=== PATIENT | female | born 2005 | race Caucasian/White ===

== ENCOUNTER 2024-05-14 19:26 | Emergency (ER) | payer SELFPAY ==
[~2024-05-14] VITALS: Ht 157.5 cm; Wt 95.6 kg
[2024-05-14 19:27] VITALS: BP 138/83; TEMP 98.7; O2SAT 98
[2024-05-14 21:38] LABS: BASO % 0.3 % (0.0-1.0); EOS # 0.4 10^3/uL (0.0-0.5); EOS % 3.5 % (0.0-3.0); HEMATOCRIT 36.9 % (36.0-47.0); HEMOGLOBIN 12.2 g/dl (12.0-15.5); LYMPH # 2.1 10^3/uL (1.5-5.0); LYMPH % 16.3 % (24.0-44.0); MEAN CORPUSCULAR HEMOGLOBIN 29.7 pg (27.0-33.0); MEAN CORPUSCULAR HGB CONC 33.1 g/dl (32.0-36.5); MEAN CORPUSCULAR VOLUME 89.8 fl (80.0-96.0); MONO # 0.6 10^3/uL (0.0-0.8); MONO % 4.4 % (2.0-8.0); NEUTROPHILS # 9.5 10^3/uL (1.5-8.5); NEUTROPHILS % 75.1 % (36.0-66.0); PLATELET COUNT, AUTOMATED 428 10^3/uL (150-450); RED BLOOD COUNT 4.11 10^6/uL (4.00-5.40); WHITE BLOOD COUNT 12.6 10^3/uL (4.0-10.0)
[2024-05-14 22:06] LABS: ALKALINE PHOSPHATASE 60 U/L (46-116); ALT/SGPT 37 U/L (7.0-40); AST/SGOT 20 U/L (<34); BILIRUBIN,TOTAL 0.3 MG/DL (0.3-1.2); BLOOD UREA NITROGEN 15 MG/DL (9-23); CALCIUM LEVEL 9.5 MG/DL (8.5-10.1); CARBON DIOXIDE LEVEL 26 MMOL/L (20-31); CHLORIDE LEVEL 107 MMOL/L (98-107); CREATININE FOR GFR 0.66 MG/DL (0.55-1.30); GLUCOSE, FASTING 101 MG/DL (60-100); POTASSIUM SERUM 4.3 MMOL/L (3.5-5.1); SODIUM LEVEL 140 MMOL/L (136-145); TOTAL PROTEIN 6.9 G/DL (5.7-8.2)
== END 2024-05-14 21:51 | disposition left against medical advice (07) ==
LOC: M ED 19:26
DX: Z53.21 Procedure and treatment not carried out due to patient leaving prior to being seen by health care provider (principal)

== ENCOUNTER 2024-07-21 07:54 | Day surgery (SDC) | payer OTHER ==
[~2024-07-21] VITALS: Ht 157.5 cm; Wt 95.7 kg
[~2024-07-21 07:54] MED LIST: VITA100093 PO
[2024-07-21] MEDS ORDERED: propofoL 500 MG/50 ML VIAL As Ordered ONE (08:06)
[2024-07-21] MEDS ORDERED: LIDOCAINE 1% SDV 5ML VIAL SC PRN (08:10)
[2024-07-21] MEDS ORDERED: LR 1,000 ML IV SCH (08:10)
[2024-07-21] MEDS ORDERED: fentaNYL 100 MCG/2 ML INJECTION As Ordered ONE (08:15)
[2024-07-21] MEDS ORDERED: MIDAZOLAM INJ 2MG/2ML VIAL As Ordered ONE (08:15)
[2024-07-21] MEDS ORDERED: LIDOCAINE 2% 100MG/5ML SDV (FOR ANES.) As Ordered ONE (08:17)
[2024-07-21] MEDS ORDERED: ONDANSETRON 4MG 2ML VIAL As Ordered ONE (08:18)
[2024-07-21] MEDS ORDERED: KETOROLAC 60MG 2ML VIAL As Ordered ONE (08:18)
[2024-07-21] MEDS: ceFAZolin SOD 2 GM in IV 1 EA IV ONE (09:25)
[2024-07-21] MEDS ORDERED: propofoL 200 MG/20 ML VIAL As Ordered ONE (09:35)
[2024-07-21 10:55] VITALS: BP 113/71; TEMP 97.2; O2SAT 100
== END 2024-07-21 11:00 | disposition home or self-care (01) ==
LOC: M SDC 07:54
PROVIDERS: ATTEND Surgery
DX: D17.1 Benign lipomatous neoplasm of skin and subcutaneous tissue of trunk (principal)
CPT/HCPCS: 21552; 81025; 88307; C9290; J0665; J0690; J1100; J1885; J2250; J2405; J3010

== ENCOUNTER 2024-07-24 17:38 | Emergency (ER) | payer OTHER ==
[~2024-07-24] VITALS: Ht 157.5 cm; Wt 96.2 kg
[2024-07-24 19:55] LABS: BASO % 0.4 % (0.0-1.0); EOS # 0.2 10^3/uL (0.0-0.5); HEMATOCRIT 38.2 % (36.0-47.0); HEMOGLOBIN 12.7 g/dl (12.0-15.5); LYMPH % 19.7 % (24.0-44.0); MEAN CORPUSCULAR HEMOGLOBIN 29.6 pg (27.0-33.0); MEAN CORPUSCULAR HGB CONC 33.2 g/dl (32.0-36.5); MONO # 0.5 10^3/uL (0.0-0.8); MONO % 4.6 % (2.0-8.0); NEUTROPHILS # 7.5 10^3/uL (1.5-8.5); PLATELET COUNT, AUTOMATED 469 10^3/uL (150-450); RED BLOOD COUNT 4.29 10^6/uL (4.00-5.40); WHITE BLOOD COUNT 10.3 10^3/uL (4.0-10.0)
[2024-07-24 20:07] LABS: ERYTHROCYTE SEDIMENTATION RATE 34 mm/hr (0-20)
[2024-07-24 20:17] LABS: HCG, SERUM QUALITATIVE NEGATIVE (NEGATIVE)
[2024-07-24 20:19] LABS: BLOOD UREA NITROGEN 13 MG/DL (9-23); CALCIUM LEVEL 9.5 MG/DL (8.5-10.1); CARBON DIOXIDE LEVEL 29 MMOL/L (20-31); CHLORIDE LEVEL 104 MMOL/L (98-107); CREATININE FOR GFR 0.66 MG/DL (0.55-1.30); GLUCOSE, FASTING 88 MG/DL (60-100); POTASSIUM SERUM 4.2 MMOL/L (3.5-5.1); SODIUM LEVEL 138 MMOL/L (136-145)
[2024-07-24] MEDS: ACETAMINOPHEN 500 MG TAB PO ONE (21:45)
[2024-07-24 22:23] VITALS: BP 143/82; TEMP 98.6; O2SAT 98
== END 2024-07-24 23:42 | disposition home or self-care (01) ==
LOC: M ED 17:38
DX: R22.32 Localized swelling, mass and lump, left upper limb (principal)

== ENCOUNTER 2024-09-10 12:00 | Emergency (ER) | payer OTHER ==
[~2024-09-10] VITALS: Ht 157.5 cm; Wt 98.2 kg
[2024-09-10 12:02] VITALS: TEMP 97.3
[2024-09-10 13:27] LABS: BASO % 0.4 % (0.0-1.0); EOS # 0.2 10^3/uL (0.0-0.5); EOS % 2.7 % (0.0-3.0); HEMATOCRIT 39.7 % (36.0-47.0); HEMOGLOBIN 13.1 g/dl (12.0-15.5); LYMPH # 1.3 10^3/uL (1.5-5.0); LYMPH % 16.7 % (24.0-44.0); MEAN CORPUSCULAR HEMOGLOBIN 29.2 pg (27.0-33.0); MEAN CORPUSCULAR VOLUME 88.6 fl (80.0-96.0); MONO # 0.4 10^3/uL (0.0-0.8); MONO % 5.1 % (2.0-8.0); NEUTROPHILS # 5.6 10^3/uL (1.5-8.5); NEUTROPHILS % 74.7 % (36.0-66.0); PLATELET COUNT, AUTOMATED 417 10^3/uL (150-450); RED BLOOD COUNT 4.48 10^6/uL (4.00-5.40); WHITE BLOOD COUNT 7.5 10^3/uL (4.0-10.0)
[2024-09-10 13:57] LABS: CPK CREATINE PHOSPHOKINASE 71 U/L (34-145)
[2024-09-10 13:58] LABS: ALBUMIN 4.2 G/DL (3.2-5.2); ALKALINE PHOSPHATASE 60 U/L (46-116); ALT/SGPT 25 U/L (7.0-40); AST/SGOT 18 U/L (<34); BILIRUBIN,DIRECT 0.2 MG/DL (<0.4); BILIRUBIN,TOTAL 0.7 MG/DL (0.3-1.2); CK-MB VALUE MASS < 1.0 NG/ML (<3.6); TOTAL PROTEIN 7.5 G/DL (5.7-8.2)
[2024-09-10 14:15] LABS: HCG, SERUM QUALITATIVE NEGATIVE (NEGATIVE)
[2024-09-10 14:30] VITALS: BP 125/73; O2SAT 99
== END 2024-09-10 15:49 | disposition home or self-care (01) ==
LOC: M ED 12:00
DX: R07.89 Other chest pain (principal); Z79.899 Other long term (current) drug therapy

== ENCOUNTER → 2024-09-28 | Outpatient (REF) | payer OTHER ==
[2024-09-28 18:43] LABS: APPEARANCE, URINE HAZY (CLEAR); BACTERIA, URINE AUTO NEGATIVE (NEGATIVE); BILIRUBIN, URINE AUTO NEGATIVE (NEGATIVE); BLOOD, URINE BLOOD 1+ (NEGATIVE); COLOR, URINE YELLOW (YELLOW); GLUCOSE, URINE (UA) AUTO NEGATIVE (NEGATIVE); KETONE, URINE AUTO NEGATIVE (NEGATIVE); LEUKOCYTE ESTERASE, URINE AUTO TRACE (NEGATIVE); MUCUS, URINE SMALL (NEGATIVE); NITRITE, URINE AUTO NEGATIVE (NEGATIVE); PROTEIN, URINE AUTO NEGATIVE (NEGATIVE); RBC, URINE AUTO 8 /HPF (0-3); SPECIFIC GRAVITY URINE AUTO 1.016 (1.002-1.035); SQUAMOUS EPITHELIAL CELL UR AU 7 /HPF (0-6); UROBILINOGEN, URINE AUTO 0.2 mg/dL (0.0-2.0); WBC, URINE AUTO 3 /HPF (0-3)
== END ==
LOC: M LAB REF 17:31
PROVIDERS: ATTEND Physician Assistant Medical
DX: N39.0 Urinary tract infection, site not specified (principal)

== ENCOUNTER 2024-10-04 12:35 | Emergency (ER) | payer OTHER ==
[~2024-10-04] VITALS: Ht 157.5 cm; Wt 98.6 kg
[2024-10-04 12:38] VITALS: BP 155/85; TEMP 98.2; O2SAT 96
[2024-10-04] MEDS ORDERED: CIPR-249 PO (12:48)
[2024-10-04] MEDS: ONDANSETRON 4MG 2ML VIAL IV ONE (14:26)
[2024-10-04] MEDS: KETOROLAC 30 MG/ML 1ML VIAL IV ONE (14:29)
[2024-10-04 14:41] LABS: BASO % 0.3 % (0.0-1.0); EOS # 0.3 10^3/uL (0.0-0.5); HEMATOCRIT 37.9 % (36.0-47.0); HEMOGLOBIN 12.6 g/dl (12.0-15.5); LYMPH # 1.4 10^3/uL (1.5-5.0); LYMPH % 15.4 % (24.0-44.0); MEAN CORPUSCULAR HEMOGLOBIN 29.2 pg (27.0-33.0); MEAN CORPUSCULAR HGB CONC 33.2 g/dl (32.0-36.5); MEAN CORPUSCULAR VOLUME 87.7 fl (80.0-96.0); MONO # 0.6 10^3/uL (0.0-0.8); MONO % 6.3 % (2.0-8.0); NEUTROPHILS # 6.6 10^3/uL (1.5-8.5); NEUTROPHILS % 74.7 % (36.0-66.0); PLATELET COUNT, AUTOMATED 416 10^3/uL (150-450); RED BLOOD COUNT 4.32 10^6/uL (4.00-5.40); WHITE BLOOD COUNT 8.9 10^3/uL (4.0-10.0)
[2024-10-04 15:07] LABS: LIPASE 30 U/L (12-53)
[2024-10-04 15:09] LABS: ALKALINE PHOSPHATASE 55 U/L (35-104); ALT/SGPT 28 U/L (7.0-40); AST/SGOT 20 U/L (<34); BILIRUBIN,DIRECT 0.2 MG/DL (<0.4); BILIRUBIN,TOTAL 0.6 MG/DL (0.3-1.2)
[2024-10-04 15:24] LABS: HCG, SERUM QUALITATIVE NEGATIVE (NEGATIVE)
== END 2024-10-04 15:57 | disposition home or self-care (01) ==
LOC: M ED 12:35
DX: R10.32 Left lower quadrant pain (principal); N83.201 Unspecified ovarian cyst, right side; Z79.899 Other long term (current) drug therapy
CPT/HCPCS: 76830; 76856; 80047; 80076; 81001; 83690; 84703; 85025; 87086; 93976; 96374; 96375; 99284; J1885; J2405

== ENCOUNTER 2024-11-04 19:12 | Emergency (ER) | payer OTHER ==
[~2024-11-04] VITALS: Ht 157.5 cm; Wt 99.1 kg
[~2024-11-04 19:12] MED LIST changes: +CIPR-249 PO
[2024-11-04] MEDS ORDERED: ONDANSETRON 4MG 2ML VIAL As Ordered ONE (19:58)
[2024-11-04] MEDS: ONDANSETRON 4MG 2ML VIAL IV ONE (20:00)
[2024-11-04] MEDS ORDERED: NS 1,000 ML IV ONE (20:10)
[2024-11-04] MEDS ORDERED: PANTOPRAZOLE 40MG VIAL IV ONE (20:10)
[2024-11-04 20:22] LABS: BASO % 0.3 % (0.0-1.0); EOS # 0.2 10^3/uL (0.0-0.5); EOS % 2.1 % (0.0-3.0); HEMATOCRIT 35.9 % (36.0-47.0); HEMOGLOBIN 11.9 g/dl (12.0-15.5); LYMPH # 1.8 10^3/uL (1.5-5.0); LYMPH % 23.2 % (24.0-44.0); MEAN CORPUSCULAR HEMOGLOBIN 29.1 pg (27.0-33.0); MEAN CORPUSCULAR HGB CONC 33.1 g/dl (32.0-36.5); MEAN CORPUSCULAR VOLUME 87.8 fl (80.0-96.0); MONO # 0.4 10^3/uL (0.0-0.8); MONO % 5.8 % (2.0-8.0); NEUTROPHILS # 5.2 10^3/uL (1.5-8.5); NEUTROPHILS % 68.2 % (36.0-66.0); PLATELET COUNT, AUTOMATED 397 10^3/uL (150-450); RED BLOOD COUNT 4.09 10^6/uL (4.00-5.40); WHITE BLOOD COUNT 7.6 10^3/uL (4.0-10.0)
[2024-11-04 20:38] LABS: CK-MB VALUE MASS < 1.0 NG/ML (<3.6); LIPASE 32 U/L (12-53)
[2024-11-04 20:40] LABS: ALKALINE PHOSPHATASE 58 U/L (35-104); ALT/SGPT 68 U/L (7.0-40); AST/SGOT 52 U/L (<34); BILIRUBIN,DIRECT 0.2 MG/DL (<0.4); BILIRUBIN,TOTAL 0.6 MG/DL (0.3-1.2); CPK CREATINE PHOSPHOKINASE 71 U/L (34-145); TOTAL PROTEIN 7.5 G/DL (5.7-8.2)
[2024-11-04 20:48] LABS: HCG, SERUM QUALITATIVE NEGATIVE (NEGATIVE)
[2024-11-04 21:10] LABS: BLOOD UREA NITROGEN 9 MG/DL (9-23); CALCIUM LEVEL 10.1 MG/DL (8.5-10.1); CARBON DIOXIDE LEVEL 24 MMOL/L (20-31); CHLORIDE LEVEL 105 MMOL/L (98-107); CREATININE FOR GFR 0.63 MG/DL (0.55-1.30); GLOMERULAR FILTRATION RATE > 60.0 (>60); GLUCOSE, FASTING 86 MG/DL (60-100); POTASSIUM SERUM 3.8 MMOL/L (3.5-5.1); SODIUM LEVEL 139 MMOL/L (136-145)
[2024-11-04] MEDS ORDERED: ONDA-282 PO (22:04)
[2024-11-04] MEDS ORDERED: CARA1TAB6 PO (22:04)
[2024-11-04] MEDS ORDERED: PROT1TAB2 PO (22:04)
[2024-11-04] MEDS: PANTOPRAZOLE 40MG TAB (PROTONIX) PO ONE (22:13)
[2024-11-04 22:15] VITALS: BP 143/86; TEMP 98.1; O2SAT 99
== END 2024-11-04 22:17 | disposition home or self-care (01) ==
LOC: M ED 19:12
DX: K29.70 Gastritis, unspecified, without bleeding (principal); Z79.899 Other long term (current) drug therapy
CPT/HCPCS: 76705; 80048; 80076; 81001; 82550; 82553; 83690; 84484; 84703; 85025; 87088; 93005; 96374; 99284; J2405

== ENCOUNTER 2024-11-20 08:55 | Emergency (ER) | payer OTHER ==
[~2024-11-20 08:55] MED LIST changes: +CARA1TAB6 PO; +ONDA-282 PO; +PROT1TAB2 PO
[2024-11-20] MEDS ORDERED: PANT40TA29 (09:02)
[2024-11-20] MEDS ORDERED: NORE1PAT (09:02)
[2024-11-20] MEDS ORDERED: SUCR1TAB56 (09:02)
[2024-11-20] MEDS ORDERED: METF-838 (09:02)
[2024-11-20] MEDS ORDERED: GABA-1172 (09:02)
[2024-11-20 09:58] LABS: BASO % 0.3 % (0.0-1.0); EOS # 0.1 10^3/uL (0.0-0.5); EOS % 1.7 % (0.0-3.0); HEMATOCRIT 38.7 % (36.0-47.0); HEMOGLOBIN 12.7 g/dl (12.0-15.5); LYMPH # 1.3 10^3/uL (1.5-5.0); LYMPH % 17.9 % (24.0-44.0); MEAN CORPUSCULAR HEMOGLOBIN 29.5 pg (27.0-33.0); MEAN CORPUSCULAR HGB CONC 32.8 g/dl (32.0-36.5); MEAN CORPUSCULAR VOLUME 89.8 fl (80.0-96.0); MONO # 0.4 10^3/uL (0.0-0.8); MONO % 6.1 % (2.0-8.0); NEUTROPHILS # 5.4 10^3/uL (1.5-8.5); NEUTROPHILS % 73.7 % (36.0-66.0); PLATELET COUNT, AUTOMATED 430 10^3/uL (150-450); RED BLOOD COUNT 4.31 10^6/uL (4.00-5.40); WHITE BLOOD COUNT 7.3 10^3/uL (4.0-10.0)
[2024-11-20 10:28] LABS: LIPASE 37 U/L (12-53)
[2024-11-20 10:29] LABS: HCG, SERUM QUALITATIVE NEGATIVE (NEGATIVE)
[2024-11-20 10:30] LABS: ALBUMIN 3.9 G/DL (3.2-5.2); ALKALINE PHOSPHATASE 61 U/L (35-104); ALT/SGPT 93 U/L (7.0-40); AST/SGOT 50 U/L (<34); BILIRUBIN,DIRECT 0.1 MG/DL (<0.4); BILIRUBIN,TOTAL 0.3 MG/DL (0.3-1.2); BLOOD UREA NITROGEN 7 MG/DL (9-23); CALCIUM LEVEL 9.4 MG/DL (8.5-10.1); CARBON DIOXIDE LEVEL 23 MMOL/L (20-31); CHLORIDE LEVEL 108 MMOL/L (98-107); CREATININE FOR GFR 0.61 MG/DL (0.55-1.30); GLOMERULAR FILTRATION RATE > 60.0 (>60); GLUCOSE, FASTING 132 MG/DL (60-100); POTASSIUM SERUM 4.2 MMOL/L (3.5-5.1); SODIUM LEVEL 140 MMOL/L (136-145); TOTAL PROTEIN 7.3 G/DL (5.7-8.2)
[2024-11-20] MEDS: ONDANSETRON 4MG 2ML VIAL IV ONE (11:30)
[2024-11-20] MEDS: MORPHINE 4 MG/ML 1ML VIAL IV ONE ×2 (11:30→15:35)
[2024-11-20] MEDS ORDERED: ISOVUE-370 76% 100ML VIAL As Ordered ONE (12:00)
[2024-11-20 17:00] VITALS: BP 134/73
[2024-11-20 17:01] VITALS: O2SAT 99
[2024-11-20] MEDS ORDERED: ONDA-282 PO (17:03)
[2024-11-20] MEDS ORDERED: PANT40TA29 PO (17:08)
[2024-11-20] MEDS ORDERED: SUCR1SS PO (17:09)
[2024-11-20 17:14] VITALS: TEMP 97.4
== END 2024-11-20 17:18 | disposition home or self-care (01) ==
LOC: M ED 08:55
DX: K52.9 Noninfective gastroenteritis and colitis, unspecified (principal); Z79.899 Other long term (current) drug therapy
CPT/HCPCS: 74177; 76830; 76856; 80048; 80076; 81000; 81015; 83690; 84703; 85025; 87086; 93976; 96374; 96375; 96376; 99284; J2405; Q9967

== ENCOUNTER → 2025-02-25 | Outpatient (REF) | payer OTHER ==
[~2025-02-25] MED LIST changes: +GABA-1172; +METF-838; +NORE1PAT; +PANT40TA29; +PANT40TA29 PO; +SUCR1SS PO; +SUCR1TAB56
[2025-02-25 15:24] LABS: APPEARANCE, URINE HAZY (CLEAR); BACTERIA, URINE AUTO 1+ (NEGATIVE); BILIRUBIN, URINE AUTO NEGATIVE (NEGATIVE); BLOOD, URINE BLOOD 1+ (NEGATIVE); COLOR, URINE YELLOW (YELLOW); GLUCOSE, URINE (UA) AUTO NEGATIVE (NEGATIVE); KETONE, URINE AUTO NEGATIVE (NEGATIVE); LEUKOCYTE ESTERASE, URINE AUTO TRACE (NEGATIVE); MUCUS, URINE SMALL (NEGATIVE); NITRITE, URINE AUTO NEGATIVE (NEGATIVE); PROTEIN, URINE AUTO NEGATIVE (NEGATIVE); RBC, URINE AUTO 2 /HPF (0-3); SPECIFIC GRAVITY URINE AUTO 1.025 (1.002-1.035); SQUAMOUS EPITHELIAL CELL UR AU 3 /HPF (0-6); UROBILINOGEN, URINE AUTO 0.2 mg/dL (0.0-2.0); WBC, URINE AUTO 4 /HPF (0-3)
== END ==
LOC: M LAB REF 14:18
PROVIDERS: ATTEND Physician Assistant Medical
DX: N39.0 Urinary tract infection, site not specified (principal)

== ENCOUNTER → 2025-08-03 | Outpatient (REF) | payer OTHER ==
[~2025-08-03] MED LIST changes: -GABA-1172; +GABA-1172 PO; +IBUP200T46 PO; -METF-838; +METF-838 PO; -NORE1PAT; +NORE1PAT TD; -PANT40TA29; -SUCR1TAB56; +SUCR1TAB56 PO
[2025-08-03 19:21] LABS: APPEARANCE, URINE HAZY (CLEAR); BACTERIA, URINE AUTO 1+ (NEGATIVE); BILIRUBIN, URINE AUTO NEGATIVE (NEGATIVE); BLOOD, URINE BLOOD NEGATIVE (NEGATIVE); GLUCOSE, URINE (UA) AUTO NEGATIVE (NEGATIVE); KETONE, URINE AUTO NEGATIVE (NEGATIVE); LEUKOCYTE ESTERASE, URINE AUTO 2+ (NEGATIVE); MUCUS, URINE SMALL (NEGATIVE); NITRITE, URINE AUTO NEGATIVE (NEGATIVE); PROTEIN, URINE AUTO NEGATIVE (NEGATIVE); RBC, URINE AUTO 1 /HPF (0-3); SPECIFIC GRAVITY URINE AUTO 1.017 (1.002-1.035); SQUAMOUS EPITHELIAL CELL UR AU 13 /HPF (0-6); UROBILINOGEN, URINE AUTO 0.2 mg/dL (0.0-2.0); WBC, URINE AUTO 10 /HPF (0-3)
== END ==
LOC: M LAB REF 17:31
PROVIDERS: ATTEND Physician Assistant
DX: N39.0 Urinary tract infection, site not specified (principal)

== ENCOUNTER 2025-11-17 11:15 | Emergency (ER) | payer OTHER ==
[~2025-11-17] VITALS: Ht 157.5 cm; Wt 101.6 kg
[2025-11-17] MEDS: KETOROLAC 30 MG/ML 1 ML VIAL IV ONE (12:32)
[2025-11-17] MEDS: NS (Normal Saline) 0.9% 1,000 ML IV ONE (12:33)
[2025-11-17 12:44] LABS: BASO # 0.0 10^3/uL (0.0-0.2); BASO % 0.4 % (0.0-1.0); EOS # 0.1 10^3/uL (0.0-0.5); EOS % 1.9 % (0.0-3.0); LYMPH # 1.2 10^3/uL (1.5-5.0); LYMPH % 16.8 % (24.0-44.0); MONO # 0.4 10^3/uL (0.0-0.8); MONO % 5.5 % (2.0-8.0); NEUTROPHILS # 5.5 10^3/uL (1.5-8.5); NEUTROPHILS % 75.0 % (36.0-66.0); PLATELET COUNT, AUTOMATED 389 10^3/uL (150-450)
[2025-11-17 13:14] LABS: CK-MB VALUE MASS < 1.0 NG/ML (<3.6)
[2025-11-17 13:15] LABS: CALCIUM LEVEL 8.7 MG/DL (8.5-10.1); CARBON DIOXIDE LEVEL 25 MMOL/L (20-31); CHLORIDE LEVEL 107 MMOL/L (98-107); CREATININE FOR GFR 0.68 MG/DL (0.55-1.30); GLOMERULAR FILTRATION RATE > 90.0 (>60); POTASSIUM SERUM 4.1 MMOL/L (3.5-5.1); SODIUM LEVEL 141 MMOL/L (136-145)
[2025-11-17 13:18] LABS: HCG, SERUM QUALITATIVE NEGATIVE (NEGATIVE)
[2025-11-17 13:19] LABS: CPK CREATINE PHOSPHOKINASE 59 U/L (34-145)
[2025-11-17] MEDS ORDERED: ISOVUE-370 76% 100 ML VIAL As Ordered ONE (13:25)
[2025-11-17 15:05] VITALS: BP 134/88; TEMP 97.9; O2SAT 100
[2025-11-17] MEDS ORDERED: VENTAER INH (15:54)
[2025-11-17] MEDS ORDERED: PRED20TA PO (15:54)
== END 2025-11-17 15:59 | disposition home or self-care (01) ==
LOC: M ED 11:15
DX: R07.89 Other chest pain (principal); J90 Pleural effusion, not elsewhere classified; F41.9 Anxiety disorder, unspecified; E66.9 Obesity, unspecified; N80.9 Endometriosis, unspecified; Z97.5 Presence of (intrauterine) contraceptive device
CPT/HCPCS: 71046; 71275; 80048; 82550; 82553; 84484; 84703; 85025; 87486; 87581; 87633; 87798; 93005; 96361; 96374; 99284; J1885; Q9967